=== PATIENT | male | born 1965 | race Caucasian/White ===

== ENCOUNTER 2022-08-04 05:44 | Emergency (ER) | payer OTHER ==
[~2022-08-04] VITALS: Ht 180.3 cm; Wt 137.0 kg
[2022-08-04] MEDS ORDERED: CARVEDILOL3.125 M1 PO (06:38)
[2022-08-04] MEDS ORDERED: JARDIANCE10 MG PO (06:39)
[2022-08-04] MEDS ORDERED: COZAAR25 MG PO (06:39)
[2022-08-04] MEDS ORDERED: EZALLOR SPRINKL20 MG PO (06:40)
[2022-08-04] MEDS ORDERED: TRAZODONE HCL50 MG PO (06:41)
[2022-08-04] MEDS ORDERED: OZEMPIC1 MG/0.71 SUBCUTANEO (06:42)
== END 2022-08-04 11:59 | disposition home or self-care (01) ==
LOC: ER 05:44
DX: R06.02 Shortness of breath (principal); R60.9 Edema, unspecified; I10 Essential (primary) hypertension; E11.9 Type 2 diabetes mellitus without complications